=== PATIENT | male | born 1995 | race Caucasian/White ===

== ENCOUNTER → 2016-11-29 | Outpatient (REF) | payer MEDICAID ==
[2016-11-29 13:59] LABS: BILIRUBIN,DIRECT 0.2 MG/DL (0.0-0.2)
[2016-12-01 14:14] LABS: (LD) FRACTION 1 31 % (17-32); (LD) FRACTION 2 30 % (25-40); (LD) FRACTION 3 18 % (17-27); (LD) FRACTION 4 9 % (5-13); (LD) FRACTION 5 12 % (4-20); LDH 190 IU/L (121-224)
== END ==
LOC: M LAB REF 12:44
PROVIDERS: ATTEND Internal Medicine Medical Oncology
DX: R16.1 Splenomegaly, not elsewhere classified (principal)